=== PATIENT | male | born 1960 | race Caucasian/White ===

== ENCOUNTER → 2022-12-05 13:46 | Outpatient (REF) | payer OTHER, SELFPAY ==
--- NOTE | 2022-12-05 13:54 | CA_ITS ---
Transthoracic Echocardiogram Patient (Last, First, Middle): Elgin Duque, Gender: Male Date of : 1960 Age: 62 Procedure Date: 12/05/2022 Procedure Type: Transthoracic Echocardiogram Location: [facility] Height: 182.88 cm Weight: 81.65 kg BSA: 2.04 m2 Heart Rate: 55 bpm BP: 108 / 64 mmHg Sand Technician: CARLOS A Referring MD: Sj Szymanski MD Symptoms: NONRHEUMATIC MV INSUFF Study Quality: Adequate ECG Rhythm: Bradycardia Conclusions: - Mildly increased left ventricular cavity size. - The left ventricular systolic function is normal. The calculated ejection fraction is 63% by biplane method. - The left atrium is severely dilated. - There is a flail posterior mitral leaflet. There is moderate to severe mitral valve regurgitation. - There is mild dilatation of the sinuses of Valsalva measuring 4.16 cm and mild dilatation of the ascending aorta measuring 3.80 cm. - Recommend a BOGDAN. Findings Left Ventricle Mildly increased left ventricular cavity size. There is mildly increased left ventricular wall thickness. The left ventricular systolic function is normal. The calculated ejection fraction is 63% by biplane method. There is no evidence of regional wall motion abnormalities. Diastolic function is normal for age. LV peak GLS -18.3%. Right Ventricle Normal right ventricular cavity size and systolic function. Atria The left atrium is severely dilated. The right atrium is normal in size. Aortic Valve There is a normal trileaflet aortic valve. There is no aortic valve stenosis. There is no aortic valve regurgitation. Mitral Valve There is mild anterior and posterior mitral leaflet thickening. There is a flail posterior mitral leaflet. There is moderate to severe mitral valve regurgitation. The mitral regurgitation jet is directed anteriorly. There is no mitral valve stenosis. Severity difficult to assess due to eccentricity. Pulmonic Valve There is trace pulmonic valve regurgitation. Tricuspid Valve Normal tricuspid valve structure. There is trace tricuspid valve regurgitation. There is no evidence of pulmonary hypertension. Great Vessels There is mild dilatation of the sinuses of Valsalva measuring 4.16 cm and mild dilatation of the ascending aorta measuring 3.80 cm. Venous The inferior vena cava is normal in size and collapses greater than 50% with inspiration. Pericardium/Pleural There is no evidence of pericardial effusion. Prior Study Comparison No significant change compared to prior study dated: 03/28/2019. (prior study at [facility]) Recommendations, Care & Conclusions Recommend a BOGDAN. Measurements 2D Linear Measurements IVSd: 1.13 0.6-0.9/0.6-1.0 cm LVIDd: 5.61 3.9-5.3/4.2-5.9 cm LVIDd Index: 2.75 2.4-3.2/2.2-3.1 cm/m2 LVIDs: 3.25 2.0-3.6 cm LVPWd: 1.17 0.7-1.1 cm LA Diam: 4.10 2.7-3.8/3.0-4.0 cm LAIDs Index: 2.01 1.5-2.3 cm/m2 LV Mass: 331.09 67-162/88-224 g LV Mass Index: 162.30 43-95/49-115 g/m2 LVOT Diam: 2.20 3.0+(-)1.3 cm 2D Systolic Function EF 4C: 63.00 >55% EF 2C: 64.00 >55% EF BiP: 63.00 >55% Mitral Valve MV Pk E: 0.66 MV PK A: 0.63 MV Decel Time: 230.00 E/A: 1.00 E'Lateral: 10.30 E'Medial: 7.51 E/E' Med: 8.70 E/E' Lat: 6.40 PHT: 67.00 MVA PHT: 3.28 Decel Chaves: 2.85 Aortic Valve AoV Pk Andrew: 1.12 AoV Mn Andrew: 0.82 AoV VTI: 0.29 AoV Pk Grad: 5.00 Aov Mn Grad: 3.00 CHAZ Cont.VTI: 2.10 LVOT LVOT Pk Andrew: 0.75 LVOT Mn Andrew: 0.49 LVOT VTI: 0.16 LVOT Pk Grad: 2.00 LVOT Mn Grad: 1.00 LVOT Diam: 2.20 LVOT Area: 3.80 Diastolic Function MV Pk E: 0.66 MV Pk A: 0.63 E/A: 1.00 E'Medial: 7.51 E/E' Med: 8.70 E' Laterial: 10.30 E/E' Lat: 6.40 Right Ventricle TAPSE (mm): 22.60 TVS' Andrew: 979.00 Tricuspid Valve TR Pk Andrew: 2.24 TR Pk Grad: 20.00 RA Press: 3.00 RVSP: 23.00 Great Vessels Aorta Sinus of Valsalva: 4.16 2.0-3.[address] Ridge: 3.27 1.7-3.4 cm Ao Asc: 3.80 2.1-3.4 cm Updated in Other Vendor System with Status of Final Bharath Mary MD electronically signed on 12/05/2022 3:20:24 PM with status of Final
== END ==
LOC: HO.CARD 13:46
PROVIDERS: PCP Family Medicine; Visit Provider Family Medicine
DX: I34.0 Nonrheumatic mitral (valve) insufficiency (principal)
CPT/HCPCS: 93306; 93356